=== PATIENT | female | born 1950 | race Caucasian/White ===

== ENCOUNTER 2017-02-08 07:01 | Outpatient (CLI) | payer OTHER, MEDICARE | END 2017-02-08 07:02 | disposition critical access hospital (66) | LOC: EMS 07:01 | PROVIDERS: ATTEND Surgery | DX: M79.641 Pain in right hand (principal); R07.89 Other chest pain; V40.5XXA Car driver injured in collision with pedestrian or animal in traffic accident, initial encounter; Y92.413 State road as the place of occurrence of the external cause | CPT/HCPCS: A0425; A0429 ==

== ENCOUNTER 2017-02-08 07:10 | Emergency (ER) | payer OTHER, MEDICARE ==
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
--- NOTE | 2017-02-08 08:14 | XRAY Preliminary Report ---
Exam: XR HAND 3 VIEW RT IMPRESSION: Normal hand radiography. [facility] SITE ID: [id number]
--- NOTE | 2017-02-08 08:16 | XRAY Preliminary Report ---
Exam: XR CHEST 2 VIEW PA/LAT IMPRESSION: No acute abnormality of the chest. [facility] SITE ID: [id number]
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
[2017-02-08 08:49] VITALS: BP 140/83
== END 2017-02-08 08:49 | disposition home or self-care (01) ==
LOC: EDUNIT# → ED 07:10
DX: S60.221A Contusion of right hand, initial encounter (principal); S20.219A Contusion of unspecified front wall of thorax, initial encounter; V40.5XXA Car driver injured in collision with pedestrian or animal in traffic accident, initial encounter; Y92.411 Interstate highway as the place of occurrence of the external cause; Z79.82 Long term (current) use of aspirin
CPT/HCPCS: 71020; 99283

== ENCOUNTER 2017-07-02 14:29 | Outpatient (CLI) | payer MEDICARE ==
--- NOTE | 2017-07-05 14:50 | Mammography Report ---
DIGITAL SCREENING MAMMOGRAM: 07/02/2017 CLINICAL INDICATION: A 66-year-old for screening. COMPARISON: 06/2015, 10/2007. TECHNIQUE: Routine CC and MLO projections were obtained of the breasts. FINDINGS: Parenchymal tissue within the breasts is predominantly fatty replaced. There are no dominant masses, suspicious microcalcifications, or secondary signs of malignancy. In comparison to the previous studies, there are no significant changes. IMPRESSION: NO MAMMOGRAPHIC EVIDENCE OF MALIGNANCY. NO SIGNIFICANT INTERVAL CHANGES. RECOMMENDATION: Screening mammography is recommended annually. BIRADS CATEGORY 1 - NEGATIVE. STANDARD QUALIFYING STATEMENTS: 1. This examination was reviewed with the aid of Computed-Aided Detection (CAD). 2. A negative or benign imaging report should not delay biopsy if clinically suspicious findings are present. Consider surgical consultation if warranted. More than 5% of cancers are not identified by imaging. 3. Dense breasts may obscure an underlying neoplasm. TD: 07/05/2017 14:49
== END 2017-07-02 14:30 | disposition home or self-care (01) ==
LOC: DI.N 14:29
PROVIDERS: ATTEND Physician Assistant
DX: Z12.31 Encounter for screening mammogram for malignant neoplasm of breast (principal)
CPT/HCPCS: 77067

== ENCOUNTER 2020-07-02 09:59 | Emergency (ER) | payer MEDICARE ==
--- NOTE | 2020-07-02 10:35 | ED Physician Documentation ---
PD HPI LOWER EXT INJURY - Stated complaint Stated Complaint: LT KNEE INJ - Chief complaint Chief Complaint: Ext Problem - History obtained from History obtained from: Patient - History of Present Illness PD HPI LOW EXT INJURY LOCATION: Left (3 nights ago she twisted her knee while walking. Has had pain across the front of the left knee joint since. Hurts with walking, mild at rest. 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 : None HEENT: None Psych: None Musculoskeletal: None Derm: None - Past Surgical History Past Surgical History: Yes General: Cholecystectomy HEENT: Tonsil/Adenoidectomy - Present Medications Home Medications: Ambulatory Orders Medication Instructions Recorded Confirmed Aspirin 81 mg ORAL DAILY 02/08/17 07/02/20 Calcium Phosphate Dibas/Vit D3 1 each PO DAILY 07/02/20 07/02/20 [Vitamin W0-[id number]-Gcwd Tablet] Losartan Potassium 25 mg PO DAILY 07/02/20 07/02/20 Multivitamin 1 tab ORAL DAILY 07/02/20 07/02/20 - Allergies Allergies/Adverse Reactions: Allergies Allergy/AdvReac Type Severity Reaction Status Date / Time No Known Drug Allergies Allergy Verified 07/02/20 10:10 - Social History Does the pt smoke?: No Smoking Status: Never smoker Does the pt drink ETOH?: No Does the pt have substance abuse?: No - Immunizations Immunizations are current?: Yes PD ED PE NORMAL - Vitals Vital signs reviewed: Yes - General General: Alert and oriented X 3, No acute distress - HEENT HEENT: PERRL, EOMI - Neck Neck: Supple, no meningeal sign, No bony TTP - Extremities Extremities: Other (Left knee is visibly normal without effusion or redness. She is tender along the lateral joint line. Pain with ACL testing and LCL testing but no laxity of any ligaments.) - Neuro Neuro: Alert and oriented X 3, Normal speech Results - Vitals Vitals: Vital Signs - 24 hr 07/02/20 10:04 Temperature 36.3 C L Heart Rate 73 Respiratory 16 Rate Blood Pressure 146/82 H O2 Saturation 99 Oxygen O2 Source Room air - Rads (name of study) L knee 4v Radiology: EMP read contemporaneously (BHUMI, SILVIA) Departure - Departure Disposition: 01 Home, Self Care Clinical Impression: Strain of left knee Qualifiers: Encounter type: initial encounter Qualified Code(s): S86.912A - Strain of unspe cified muscle(s) and tendon(s) at lower leg level, left leg, initial encounter Condition: Good Record reviewed to determine appropriate education?: Yes Instructions: ED Sprain Knee Follow-Up: [facility] [Provider Group] Comments: Tylenol or ibuprofen as needed for pain. If not better rapidly consider following up with the orthopedic surgeons for reevaluation and further treatment.
--- NOTE | 2020-07-02 11:01 | XRAY Report ---
PROCEDURE: Knee 4 View LT INDICATIONS: knee inj TECHNIQUE: 4 views of the left knee(s) were acquired. COMPARISON: None. FINDINGS: Bones: No fractures or dislocations. No suspicious bony lesions. Periarticular osteophytes are pre sent. Patellar osteophyte is present. Soft tissues: No joint effusion. No suspicious soft tissue calcifications. IMPRESSION: Degenerative changes. No visualized acute fracture or dislocation. However, occult injur y cannot be excluded. Recommend short interval imaging follow-up in 7-10 days as clinically indicated for additional evaluation. Reviewed by: Billie Price MD on 07/02/2020 11:00 AM PDT Approved by: Billie Price MD on 07/02/2020 11:00 AM PDT Station ID: [id number]
[2020-07-02 11:35] VITALS: BP 157/81
== END 2020-07-02 11:35 | disposition home or self-care (01) ==
LOC: ED 09:59
DX: S86.812A Strain of other muscle(s) and tendon(s) at lower leg level, left leg, initial encounter (principal); X50.1XXA Overexertion from prolonged static or awkward postures, initial encounter; Y93.H9 Activity, other involving exterior property and land maintenance, building and construction; M17.12 Unilateral primary osteoarthritis, left knee; I10 Essential (primary) hypertension
CPT/HCPCS: 99282; 99283

== ENCOUNTER 2022-09-10 08:14 | Outpatient (CLI) | payer MEDICARE ==
--- NOTE | 2022-09-10 10:54 | DEXA Report ---
PROCEDURE: Dexa Spine and/or Hip INDICATIONS: POST MENOPAUSAL TECHNIQUE: Dual energy x-ray absorptiometry (DXA) was performed on a [employer] System. Regions measur ed are the AP Spine, femoral neck, and if needed forearm. COMPARISON: 07/07/2015 FINDINGS: Lumbar Spine: Bone Mineral Density 0.933 g/cm/cm,T score -2.2. Moderate osteopenia Left Femoral Neck: Bone Mineral Density 0.674 g/cm/cm, T score -2.6. Osteoporosis Left Hip: Bone Mineral Density 0.771 g/cm/cm,T score -1.9. Osteopenia (T score greater or equal to -1.0: NORMAL) (T score from -1.1 to -2.4: OSTEOPENIA) (T score less than or equal to -2.5 to: OSTEOPOROSIS) Impression: By WHO criteria, this patient has osteoporosis. Patient is at high risk for fracture. There has been significant decrease in bone mineral density of 7.2% within the lumbar spine and appro ximately 10.8% in the hip. Patients with diagnosis of osteoporosis or osteopenia should have regular bone mineral density assess ment. For those eligible for Medicare, routine testing is allowed once every 2 years. Testing frequ ency can be increased for patients who have rapidly progressing disease or for those who are receivin g medical therapy to restore bone mass. Reviewed by: Cullen Parker MD on 09/10/2022 10:53 AM PDT Approved by: Cullen Parker MD on 09/10/2022 10:53 AM PDT Station ID: [id number]
== END 2022-09-10 08:15 | disposition home or self-care (01) ==
LOC: DI 08:14
PROVIDERS: ATTEND Physician Assistant
DX: M81.0 Age-related osteoporosis without current pathological fracture (principal)

== ENCOUNTER 2023-12-02 12:57 | Outpatient (CLI) | payer MEDICARE ==
--- NOTE | 2023-12-02 17:02 | DEXA Report ---
PROCEDURE: Dexa Spine and/or Hip INDICATIONS: OSTEOPOROSIS TECHNIQUE: Dual energy x-ray absorptiometry (DXA) was performed on a [employer] System. Regions measur ed are the AP Spine, femoral neck, and if needed forearm. COMPARISON: None FINDINGS: Lumbar Spine: Bone Mineral Density: 0.971 g/cm/cm,T score: -1.7. Osteopenia Left Femoral Neck: Bone Mineral Density: 0.71 g/cm/cm, T score: -2.4. Left Hip: Bone Mineral Density: 0.768 g/cm/cm,T score: -1.9. Osteopenia FRAX risk factors: None given. 10 year risk of major osteoporotic fracture: 13.5% major osteoporotic fracture = hip, clinical vertebral, proximal humerus, distal forearm 10 year risk of hip fracture: 3.6% (T score greater or equal to -1.0: NORMAL) (T score from -1.1 to -2.4: OSTEOPENIA) (T score less than or equal to -2.5 to: OSTEOPOROSIS) Impression: By WHO criteria, this patient has low bone density (osteopenia). The 10 year risk of major osteoporotic fracture is 13.5% and of a hip fracture is 3.6%. Patients with diagnosis of osteoporosis or osteopenia should have regular bone mineral density assess ment. For those eligible for Medicare, routine testing is allowed once every 2 years. Testing frequ ency can be increased for patients who have rapidly progressing disease or for those who are receivin g medical therapy to restore bone mass. Reviewed by: Adam Reardon MD on 12/02/2023 5:00 PM PDT Approved by: Adam Reardon MD on 12/02/2023 5:00 PM PDT Station ID: [id number]
== END 2023-12-02 12:58 | disposition home or self-care (01) ==
LOC: DI 12:57
PROVIDERS: ATTEND Physician Assistant
DX: M85.89 Other specified disorders of bone density and structure, multiple sites (principal)